=== PATIENT | male | born 1965 | race Caucasian/White ===

== ENCOUNTER 2017-03-21 09:32 | Emergency (ER) | payer BC ==
[~2017-03-21] VITALS: Ht 175.3 cm; Wt 88.0 kg
[~2017-03-21 09:32] MED LIST: ASPI325T PO; FIORIC PO; VALP250C PO
[2017-03-21 09:37] VITALS: BP 131/64; PULSE 78; RESP 16; TEMP 98.1; O2SAT 98
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
== END 2017-03-21 12:13 | disposition home or self-care (01) ==
LOC: PHED 09:32 → PHEFT 12:13
DX: S20.219A Contusion of unspecified front wall of thorax, initial encounter (principal); W31.89XA Contact with other specified machinery, initial encounter; Y93.89 Activity, other specified; Z72.0 Tobacco use
CPT/HCPCS: 71010; 71120; 99283

== ENCOUNTER 2018-02-25 13:09 | Observation (INO) ==
[2018-02-25 13:50] LABS: Baso # (Auto) 0.1 th/mm3 (0.0-0.2); Baso % (Auto) 1.1 % (0.0-2.0); Eos # (Auto) 0.2 th/mm3 (0.0-0.4); Hematocrit 42.7 % (39.0-51.0); Lymph # (Auto) 1.8 th/mm3 (1.0-4.8); Lymph % (Auto) 26.4 % (9.0-44.0); Mean Corpuscular HGB Conc 35.2 % (32.0-36.0); Mean Corpuscular Hemoglobin 32.7 pg (27.0-34.0); Mean Corpuscular Volume 92.8 fL (80.0-100.0); Mean Platelet Volume 7.5 fL (7.0-11.0); Mono # (Auto) 0.5 th/mm3 (0.0-0.9); Mono % (Auto) 7.4 % (0.0-8.0); Neut # (Auto) 4.3 th/mm3 (1.8-7.7); Neut % (Auto) 62.1 % (16.0-70.0); Platelet Count 289 th/mm3 (150-450); White Blood Count 6.9 th/mm3 (4.0-11.0)
[2018-02-25 14:00] LABS: Activated Partial Thrombo Time 25.4 sec (24.3-30.1); INR 1.1 Ratio; Prothrombin Time 10.7 sec (9.8-11.6)
--- NOTE | 2018-02-25 14:01 | CT ---
EXAM DATE: 02/25/2018 1:31 PM EDT AGE/SEX: 52 years / Male INDICATIONS: Right sided weakness CLINICAL DATA: This is the patient's initial encounter. Patient reports that signs and symptoms have been present for 1 day and indicates a pain score of 0/10. MEDICAL/SURGICAL HISTORY: . TIA None. RADIATION DOSE: 56.35 CTDI (mGy) COMPARISON: No prior exams available for comparison. TECHNIQUE: CT of the head without contrast. Using automated exposure control and adjustment of the mA and/or kV according to patient size, radiation dose was kept as low as reasonably achievable to ob tain optimal diagnostic quality images. DICOM format image data is available electronically for revi ew and comparison. There is no evidence for intracranial hemorrhage, mass effect, mass lesions, edema, or extra-axial fl uid collections. The visualized bony structures appear intact. The ventricles are normal size for t he patient's age. There are no signs of acute infarction for technique. CONCLUSION: Unremarkable study. Findings were reported to by myself after completion of t he study at 13:50 hours. Electronically signed by: Fran Cárdenas MD 02/25/2018 1:59 PM EDT
[2018-02-25] MEDS: Sod Chloride 0.9% Inj 1,000 ML IV.CONT SCH (14:04)
--- NOTE | 2018-02-25 14:14 | CT ---
EXAM DATE: 02/25/2018 1:31 PM EDT AGE/SEX: 52 years / Male INDICATIONS: Right side weakness CLINICAL DATA: This is the patient's initial encounter. Patient reports that signs and symptoms have been present for 1 day and indicates a pain score of 0/10. MEDICAL/SURGICAL HISTORY: . tia None. RADIATION DOSE: 10.11 CTDI (mGy) [place] [facility] [place]. . TECHNIQUE: Volumetric scanning was performed using a multi-row detector CT scanner during bolus infu dawn of 75 ml Visipaque 320 (iodixanol) nonionic water-soluble contrast as a cumulative dose for mul tiple exams. The data was post processed with a variety of visualization algorithms including full volume maximum intensity projection, multi-planar sliding thin slab reformation, curved planar reform ation, and surface rendering techniques. Using automated exposure control and adjustment of the mA a nd/or kV according to patient size, radiation dose was kept as low as reasonably achievable to obtain optimal diagnostic quality images. DICOM format image data is available electronically for review a nd comparison. FINDINGS: There is excellent visualization of the major intracranial arteries out to the second-order branch ve ssels. There is no evidence for aneurysm, vessel truncation or stenosis, and no evidence for vascula r malformation. CONCLUSION: Negative CTA Head. Electronically signed by: Reji Larson MD 02/25/2018 2:12 PM EDT
[2018-02-25 14:17] LABS: Creatine Kinase 130 U/L (39-308)
--- NOTE | 2018-02-25 14:37 | CT ---
EXAM DATE: 02/25/2018 1:31 PM EDT AGE/SEX: 52 years / Male INDICATIONS: Right side weakness CLINICAL DATA: This is the patient's initial encounter. Patient reports that signs and symptoms have been present for 1 day and indicates a pain score of 0/10. MEDICAL/SURGICAL HISTORY: . TIA None. RADIATION DOSE: 10.11 CTDI (mGy) ; Combined studies COMPARISON: No prior exams available for comparison. TECHNIQUE: Volumetric scanning was performed using a multirow detector CT scanner during bolus infus ion of 75 ml Visipaque 320 (iodixanol) nonionic water-soluble contrast as a cumulative dose for mult iple exams. The data was postprocessed with a variety of visualization algorithms including full-vo lume maximum intensity projection, multiplanar sliding thin-slab reformation, curved-planar reformati on, and surface-rendering techniques. Using automated exposure control and adjustment of the mA and/ or kV according to patient size, radiation dose was kept as low as reasonably achievable to obtain op timal diagnostic quality images. DICOM format image data is available electronically for review and comparison. Percent stenosis is calculated using the diameter of the stenotic region over the diameter of the nor mal distal internal carotid artery. FINDINGS: Aortic Arch: There is a three-vessel origin of the great vessels from the aorta. No evidence of ost ial narrowing Right Carotid: The common carotid artery is intact. The carotid bulb has a normal configuration wit hout ulceration or narrowing. The internal carotid artery lumen is smooth without stenosis. The ext ernal carotid artery is intact. Left Carotid: The common carotid artery is intact. The carotid bulb has a normal configuration with out ulceration or narrowing. The internal carotid artery lumen is smooth without stenosis. The exte rnal carotid artery is intact. Vertebrals: The vertebral arteries are patent bilaterally, left side dominant. No stenotic lesions are seen. CONCLUSION: Negative CTA Carotid. Electronically signed by: Reji Larson MD 02/25/2018 2:36 PM EDT
--- NOTE | 2018-02-25 15:04 | XR ---
EXAM DATE: 02/25/2018 1:27 PM EDT AGE/SEX: 52 years / Male INDICATIONS: Stroke Alert. Shortness of breath and chest pain. CLINICAL DATA: This is the patient's initial encounter. Patient reports that signs and symptoms have been present for 1 day and indicates a pain score of 4/10. MEDICAL/SURGICAL HISTORY: . TIA. None. COMPARISON: [facility], STERNUM (MIN 2 VWS), 03/21/2017. . FINDINGS: A single AP view of the chest demonstrates the lungs to be symmetrically aerated without evidence of mass, infiltrate or effusion. The cardiomediastinal contours are unremarkable. Osseous structures a re intact. CONCLUSION: Negative examination. Electronically signed by: Reji Larson MD 02/25/2018 3:02 PM EDT
--- NOTE | 2018-02-25 15:22 | ED ---
HPI General Chief complaint: Stroke Alert Stated complaint: facial drooping Time Seen by Provider: 02/25/18 13:27 Source: patient and family Mode of arrival: wheelchair Limitations: no limitations History of Present Illness HPI narrative: Patient is a 52-year-old male brought in by his due to concerns for stroke. Per , an hour prior to arrival he started to have a right-sided facial droop and right-sided weakness. states that he has had a TIA in the past. He is on no medications, and he is a smoker. He says he is starting to feel better on arrival, but he still says he feels some numbness to the right side of his face and weakness of his right arm. He denies feeling ill prior to the event. He denies chest pain or shortness of breath. Denies fever chills. Severity is moderate. Related Data Home Medications Medication Instructions Recorded Confirmed No Known Home Medications 02/25/18 02/25/18 Allergies Allergy/AdvReac Type Severity Reaction Status Date / Time codeine Allergy Unknown PT SAYS Verified 02/25/18 13:40 THAT HIS BROTHER FROM IT Review of Systems ROS: all other systems reviewed are negative Constitutional Denies chills and Denies fever(s) Eyes Denies blurry vision ENT Denies dizziness Cardiovascular Denies chest pain Respiratory Denies dyspnea Gastrointestinal Denies nausea and Denies vomiting Musculoskeletal Denies myalgias and Denies arthralgias Integumentary/Breasts Denies sores and Denies wounds Neurologic Reports focal weakness and Reports numbness [facility] Medical History Medical History Migraine (Acute) TIA (transient ischemic attack) (Acute) Social History Social History Substance History: Unable to Obtain Smoking Status: Current every day smoker Tobacco Type: Cigarettes How Often Do You Have a Drink Containing Alcohol: Monthly or less Recent Out of Country Travel within the Last 8 Weeks: No Immunization History Tetanus Immunization: Unsure Exam Narrative Exam Narrative: GENERAL: Awake and alert, in no acute distress. SKIN: Focused skin assessment warm/dry. No wounds or signs of infection. HEAD: Atraumatic. Normocephalic. EYES: Pupils equal and round and reactive. No scleral icterus. Extraocular movements intact. ENT: Mucous membranes pink and moist. NECK: Trachea midline. No JVD. CARDIOVASCULAR: Regular rate and rhythm. No murmur appreciated. RESPIRATORY: No accessory muscle use. Clear to auscultation. Breath sounds equal bilaterally. GASTROINTESTINAL: Abdomen soft, non-tender, nondistended. MUSCULOSKELETAL: No obvious deformities. No clubbing. No cyanosis. No edema. NEUROLOGICAL: Awake and alert. No obvious cranial nerve deficits. Weakness of the right arm and right leg, 3 of 5 compared to 5/5 on the left. Normal speech. No sensory deficit. PSYCHIATRIC: Appropriate mood and affect; insight and judgment normal. Course Initial Documented Vital Signs Pulse Rate 88 02/25/18 13:25 Respiratory Rate 16 02/25/18 13:25 Blood Pressure 167/82 H 02/25/18 13:25 Pulse Oximetry 97 02/25/18 13:25 Last Documented Vital Signs Pulse Rate 60 02/25/18 14:27 Respiratory Rate 16 02/25/18 14:27 Blood Pressure 136/71 02/25/18 14:27 Pulse Oximetry 98 02/25/18 14:27 NIH Stroke Scale NIH Stroke Scale Level of Consciousness: 0-Alert Orientation Questions: 0-Answers both correct Responds to Commands: 0-Both tasks correct Gaze Eye Movement: 0-Horizontal movement WNL Visual Anderson: 0-No visual field defect Facial Movement: 0-Normal Motor Functions Arm LEFT: 0-No drift Motor Functions Arm RIGHT: 1-Drift before 10 seconds Motor Functions Leg LEFT: 0-No drift Motor Functions Leg RIGHT: 0-No drift Limb Ataxia: 0-No ataxia Sensory Loss: 0-No sensory loss Best Language: 0-Normal Articulation: 0-Normal Extinction or Inattention Sensory: 0-Absent Total: 1 Medical Decision Making [facility] Narrative Medical decision making narrative: Patient is a 52-year-old male who comes in due to right-sided weakness. Exam shows mild decreased strength on the right side. Stroke alert was called. Patient taken to CT scan. CT of the head shows no evidence of bleed. Patient has minor symptoms that appear to be resolving, TPA was withheld. CTA of the head performed. Labs that show no acute abnormalities. Dr. Sandra of neurology is at bedside. He is given aspirin. MRI of the brain ordered. Patient admitted for further management. Medical Screen Exam Complete: Yes Emergency Medical Condition: Yes Differential Diagnosis Differential Diagnosis: Stroke versus TIA versus ACS Medical Records Medical records reviewed: Yes I reviewed the patient's medical records. Lab Data Lab results reviewed: Yes I reviewed the patient's lab results. Result diagrams: 02/25/18 13:20 Lab Results 02/25/18 02/25/18 02/25/18 Range/Units 13:20 13:20 13:20 WBC 6.9 (4.0-11.0) th/mm3 RBC 4.60 (4.50-5.90) mil/mm3 Hgb 15.0 (13.0-17.0) gm/dL POC Hgb (Calc) 14.3 (13.0-17.0) g/dL Hct 42.7 (39.0-51.0) % POC Hct 42.0 (39-51.0) % MCV 92.8 (80.0-100.0) fL MCH 32.7 (27.0-34.0) pg MCHC 35.2 (32.0-36.0) % RDW 13.0 (11.6-17.2) % Plt Count 289 (150-450) th/mm3 MPV 7.5 (7.0-11.0) fL Neut % (Auto) 62.1 (16.0-70.0) % Lymph % (Auto) 26.4 (9.0-44.0) % Stanton % (Auto) 7.4 (0.0-8.0) % Eos % (Auto) 3.0 (0.0-4.0) % Baso % (Auto) 1.1 (0.0-2.0) % Neut # (Auto) 4.3 (1.8-7.7) th/mm3 Lymph # (Auto) 1.8 (1.0-4.8) th/mm3 Stanton # (Auto) 0.5 (0.0-0.9) th/mm3 Eos # (Auto) 0.2 (0.0-0.4) th/mm3 Baso # (Auto) 0.1 (0.0-0.2) th/mm3 WBC Differential . Differential Comment Auto diff final PT 10.7 (9.8-11.6) sec INR 1.1 Ratio APTT 25.4 (24.3-30.1) sec Fibrinogen 347 (227-377) mg/dL POC Sodium 142 (137-144) mmol/L POC Potassium 4.2 (3.6-5.0) mmol/L POC Chloride 104 (102-111) mmol/L POC BUN 12 (5-21) mg/dL POC Creatinine 1.2 (0.6-1.3) mg/dL POC Glucose 88 (68-110) mg/dL Total Creatine Kinase 130 (39-308) U/L Troponin I Less than 0.02 L (0.02-0.05) ng/mL Blood Type Blood Type Recheck Antibody Screen 02/25/18 02/25/18 Range/Units 13:20 13:24 WBC (4.0-11.0) th/mm3 RBC (4.50-5.90) mil/mm3 Hgb (13.0-17.0) gm/dL POC Hgb (Calc) (13.0-17.0) g/dL Hct (39.0-51.0) % POC Hct (39-51.0) % MCV (80.0-100.0) fL MCH (27.0-34.0) pg MCHC (32.0-36.0) % RDW (11.6-17.2) % Plt Count (150-450) th/mm3 MPV (7.0-11.0) fL Neut % (Auto) (16.0-70.0) % Lymph % (Auto) (9.0-44.0) % Stanton % (Auto) (0.0-8.0) % Eos % (Auto) (0.0-4.0) % Baso % (Auto) (0.0-2.0) % Neut # (Auto) (1.8-7.7) th/mm3 Lymph # (Auto) (1.0-4.8) th/mm3 Stanton # (Auto) (0.0-0.9) th/mm3 Eos # (Auto) (0.0-0.4) th/mm3 Baso # (Auto) (0.0-0.2) th/mm3 WBC Differential Differential Comment PT (9.8-11.6) sec INR Ratio APTT (24.3-30.1) sec Fibrinogen (227-377) mg/dL POC Sodium (137-144) mmol/L POC Potassium (3.6-5.0) mmol/L POC Chloride (102-111) mmol/L POC BUN (5-21) mg/dL POC Creatinine (0.6-1.3) mg/dL POC Glucose 97 (68-110) mg/dL Total Creatine Kinase (39-308) U/L Troponin I (0.02-0.05) ng/mL Blood Type A Positive Blood Type Recheck Required Antibody Screen Negative Imaging Data Radiologist's impression: Chest X-Ray 02/25/18 13:27 CONCLUSION: Negative examination. Head CT 02/25/18 13:27 CONCLUSION: Unremarkable study. Findings were reported to by myself after completion of the study at 13:50 hours. Head CTA 02/25/18 13:27 CONCLUSION: Negative CTA Head. Neck CTA 02/25/18 13:27 CONCLUSION: Negative CTA Carotid. ECG Data EKG Prior to Arrival: No Attestation: I personally reviewed and interpreted this ECG as follows: Interpretation: ECG shows normal sinus rhythm at a rate of 61, no ST elevation or depression, normal intervals Discharge Plan Discharge Disposition Patient Disposition: 30 Still Patient Discharge Condition Condition: Stable Discharge Details Diagnosis: Acute CVA (cerebrovascular accident) Physicians Team ED Provider: Akila Alcantar Primary Care Provider: Primary Care Jaki,Parris Attending Provider: Grisel Stanley Other Providers: Candida Sandra Discharge Interventions Interventions: Vital Signs Last Done: 02/25/18 14:27 Status ED Status: Admitted Patient
[2018-02-25] MEDS ORDERED: Bisacodyl 10 MG Supp RECTAL PRN (15:32)
[2018-02-25] MEDS ORDERED: Acetaminophen 325 MG Tablet PO PRN (15:32)
[2018-02-25 15:47] LABS: Chol/HDL Ratio 11.33 Ratio; HDL Cholesterol 25.5 mg/dL (40.0-60.0)
[2018-02-25 15:59] LABS: Bilirubin,Urine Negative (Negative); Clarity,Urine Clear (Clear); Color,Urine Yellow (Yellw/Straw); Glucose,Urine (UA) Negative (Negative); Leukocyte Esterase,Urine Negative (Negative); Mucus,Urine Few /lpf (Occasional); Nitrite,Urine Negative (Negative)
[2018-02-25 16:05] LABS: Amphetamine Screen,Urine Neg (Neg); Barbiturate Screen,Urine Neg (Neg); Cannabinoid Screen,Urine Neg (Neg); Cocaine Screen,Urine Neg (Neg)
--- NOTE | 2018-02-25 16:17 | MB ---
cc: Candida Sandra MD DATE: 02/25/2018 REASON FOR CONSULTATION: Stroke alert. HISTORY OF PRESENT ILLNESS: Mr. Rinaldi is a 52-year-old gentleman who developed sudden onset of right-sided numbness. He has had this in the past. Last time he was admitted with these symptoms was back in 2013. He has been seen by Dr. Mendieta in the hospital and has seen also my partner, Dr. Jose in the office. He develops headaches; develops, but not every time of the headache, right face numbness. He notices that he drools and then today that occurred with involvement of the right arm and leg. His symptoms started around noon. He was taken in for a CAT scan and CTA [place] and carotid, which were all unremarkable. His symptoms have significantly improved to the point where they are nearly resolved and TPA is not indicated at this time. The patient's speech is normal. No significant headache currently. His states that he has been under a lot of stress with some family issues and work. In the past, he has been tried on Topamax as well as Depakote; could not tolerate it and was placed on a statin in the past, but had muscle pain. He gets headaches near daily. He does take a full dose aspirin every day. PAST MEDICAL HISTORY: Migraines and possible TIAs in the past, history of right leg surgery, left arm surgery. ALLERGIES: CODEINE. MEDICINES AT HOME: Full dose aspirin 325 mg. SOCIAL HISTORY: Still smokes at least a pack a day, drinks beer. PHYSICAL EXAMINATION: VITAL SIGNS: Heart rate 60, respiratory rate 16, blood pressure 136/71. NECK: Supple. There are no carotid bruits. HEART: Regular, no murmurs. LUNGS: Clear. NEUROLOGIC: He is awake and alert and oriented. His pupils are reactive. His visual chaudhry are full. Extraocular muscles are normal. His face is symmetrical. Tongue midline. Speech is entirely normal. No aphasia nor any dysarthria. He has slightly decreased light touch V2, V3 on the right face. Motor: There is no drift or leg lag at this time. Jfjytp-[id number]-vzcwfu stable. No past pointing. DTRs are 1+. Sensory: Slightly decreased light touch over the right side as stated. Toes are downgoing bilaterally. IMAGIN. CT head unremarkable for any acute process. 2. CTA [place] and carotids were normal. LABORATORY DATA: His labs are reviewed and his CBC today is within normal range. Coag panel was normal. Chemistries are intact. His troponin is less than 0.02. He has had an extensive workup back in 2015 where he had a neck MRA, head MRA and brain MRI as well as having an EEG in 2013, C-spine MRI in 2013, echocardiogram in 2013. He has also had labs back in 2015 with a hypercoagulable panel that were really unremarkable. IMPRESSION: Transient ischemic attack symptoms versus complex migraine variant. RECOMMENDATIONS: Recommend at this point in time getting an MRI of the brain just to make sure that there is no small infarct that has not been seen on CT. Recommend a repeat echo and have cardiology assess him for a transesophageal echo. Check a fasting lipid panel. Start him on Plavix 75 mg daily since he is already on full dose aspirin. We will stop the aspirin and put him on the Plavix, have permissible hypertension for today. Have PT assess and get him out of bed in the morning with PT. Depending on findings, further recommendations. If this is all a migraine equivalent, certainly the medication he has tried he did not tolerate, but there is a new migraine medication. It is a once a month injection that can be initiated through the office and he can followup for that. Continue current care. Further recommendations will be made accordingly. SCDs and subcutaneous heparin for DVT prevention as well. MD SANIYA Gonzalez/yan/vamshi , 02:55 PM , 03:05 PM
--- NOTE | 2018-02-25 16:53 | P.HPIM ---
History of Present Illness Service: [facility] Primary Care Physician: No Primary Care Physician Chief Complaint: facial numbness History of Present Illness: This is a 52-year-old CM with reported PMHx of Migraines who presented to the ED due to right-sided numbness of sudden onset at 12PM today. Reports previous incident in 2014 with a hospital admission with Neg work up. Patient sees Dr. Jose as an outpatient. He was diagnosed with migraines with occasional right face numbness with drooling in the past. However, he reports that these spells occur without a headache. He denies photophobia, sensitivity to sound, and N/V with the events. This time when it occurred it included the right arm and leg. Patient reports trying Topamax in 2013 with no relief and SE of nausea as well as Depakote with no relief up to a few months ago and significant nausea as a side effect as well. Patient reports having been placed on a statin in the past , but he developed significant muscle pain, and therefore he stopped taking it. Home meds include ASA daily. Patient denies HTN, DM, HLD, and Hx of VTE/CVA/ DVT. On evaluation today sx resolved. Of note, previous extensive workup in 2016, Neck MRA, Head MRA and Brain MRI, Neg Hypercoagulable panel in 2016. - Diagnosis (1) TIA (transient ischemic attack) (2) Migraine Review of Systems All other systems reviewed negative except as stated [facility] - History History Provided By: Family Member - Medical History Medical History: Medical History (Last Reviewed 02/25/18 @ 17:50 by Grisel Stanley MD) Migraine TIA (transient ischemic attack) - Surgical History Surgical History: Surgical History (Last Updated 02/25/18 @ 17:50 by Grisel Stanley MD) History of knee surgery - Family History Family History: Family History (Last Updated 02/25/18 @ 17:50 by Grisel Stanley MD) Other Parkinson disease - Tobacco History Tobacco Use In Past 30 Days: Yes Smoking Status: Current every day smoker Tobacco Type: Cigarettes - Alcohol History How Often Do You Have a Drink Containing Alcohol: Monthly or less - Substance Use History Substance History: Unable to Obtain - Travel History Recent Travel Out of the Country Within the Last 8 Weeks: No - Immunization History Tetanus Immunization: Unsure Medications and Allergies Active Medications: Active Medications Acetaminophen (Tylenol) 650 mg PO Q4H PRN PRN Reason: Temp > 100.4 Al Hydroxide/Mg Hydroxide (Milk Of Magnesia Liq) 30 ml PO Q12H PRN PRN Reason: Mild Constipation Bisacodyl (Dulcolax Supp) 10 mg RECTAL DAILY PRN PRN Reason: SEVERE CONSITIPATION Clopidogrel Bisulfate (Plavix) 75 mg PO DAILY [facility] Last Admin: 02/25/18 15:19 Dose: 75 mg Sodium Chloride (Ns Inj) 1,000 mls @ 70 mls/hr IV.CONT .[id number] [facility] Last Admin: 02/25/18 14:04 Dose: 70 mls/hr Lactulose (Lactulose Liq) 30 ml PO DAILY PRN PRN Reason: SEVERE CONSITIPATION Ondansetron HCl (Zofran Inj) 4 mg IV.PUSH Q6H PRN PRN Reason: NAUSEA OR VOMITING Senna/Docusate Sodium (Minal-Colace) 1 tab PO BID [facility] Sennosides (Senokot) 17.2 mg PO Q12H PRN PRN Reason: Moderate Constipation Allergies Allergy/AdvReac Type Severity Reaction Status Date / Time codeine Allergy Unknown PT SAYS Verified 02/25/18 13:40 THAT HIS BROTHER FROM IT Home Medications Medication Instructions Recorded Confirmed Type No Known Home Medications 02/25/18 02/25/18 History Exam Vital signs: Vital Signs 02/25/18 13:25 02/25/18 13:30 02/25/18 13:35 Pulse Rate 88 70 67 Respiratory Rate 16 Blood Pressure 167/82 H 164/76 H 145/75 H Pulse Oximetry 97 97 96 02/25/18 13:44 02/25/18 13:45 02/25/18 13:50 Pulse Rate 66 75 72 Respiratory Rate 16 Blood Pressure 151/67 H 138/65 140/68 Pulse Oximetry 97 97 97 02/25/18 14:00 02/25/18 14:27 02/25/18 15:00 Pulse Rate 70 60 68 Respiratory Rate 16 16 18 Blood Pressure 135/95 H 136/71 130/68 Pulse Oximetry 97 98 96 02/25/18 16:00 02/25/18 16:15 Pulse Rate 62 60 Respiratory Rate 18 16 Blood Pressure 130/68 121/78 Pulse Oximetry 99 Intake & Output 10/02/25/18 02/25/18 18:59 06:59 18:59 Output Total 600 / 600 Balance -600 / -600 Weight 94.6 kg Output: Urine 600 / 600 Other: # Voids 1 Narrative: GENERAL: Well-nourished male, in no acute distress, lying comfortably in bed SKIN: Warm and dry. Multiple tattoos. HEENT: Normocephalic. No scleral icterus. No injection or drainage. PERRLA, MOM. NECK: Supple, trachea midline. No JVD or lymphadenopathy. CARDIOVASCULAR: Regular rate and rhythm without murmurs, gallops, or rubs. RESPIRATORY: CTA x2, No accessory muscle use. GASTROINTESTINAL: Abdomen soft, non-tender, nondistended. MUSCULOSKELETAL: No cyanosis, or edema. BACK: Nontender without obvious deformity. No CVA tenderness. NEURO: AAO x3, facial symmetry noted, speech is clear, motor strength 5/5 x 4, no focal deficits Results - Labs CBC & Chem 7: 02/25/18 13:20 Labs: Short CBC 02/25/18 Range/Units 13:20 WBC 6.9 (4.0-11.0) th/mm3 Hgb 15.0 (13.0-17.0) gm/dL Hct 42.7 (39.0-51.0) % Plt Count 289 (150-450) th/mm3 Cardiac Enzymes 02/25/18 Range/Units 13:20 Total Creatine Kinase 130 (39-308) U/L Troponin I Less than 0.02 L (0.02-0.05) ng/mL Urine 02/25/18 Range/Units 15:15 Urine Color Yellow (Yellw/Straw) Urine Clarity Clear (Clear) Urine pH 7.0 (5.0-8.5) Ur Specific [place] 1.020 (1.002-1.035) Urine Protein Negative (Neg-Trace) mg/dL Urine Glucose (UA) Negative (Negative) mg/dL - Imaging Impressions Chest X-Ray 02/25/18 13:27 CONCLUSION: Negative examination. Head CT 02/25/18 13:27 CONCLUSION: Unremarkable study. Findings were reported to by myself after completion of the study at 13:50 hours. Head CTA 02/25/18 13:27 CONCLUSION: Negative CTA Head. Neck CTA 02/25/18 13:27 CONCLUSION: Negative CTA Carotid. Caprini VTE Risk Assessment Caprini VTE Risk Assessment: No/Low Risk (score <= 1) Caprini Risk Assessment Model: Point Value = 1 Point Value = 2 Point Value = 3 Point Value = 5 Age 41-60 Minor surgery BMI > 25 kg/m2 Swollen legs Varicose veins or History of unexplained or recurrent spontaneous Oral contraceptives or hormone replacement Sepsis (< 1 month) Serious lung disease, including pneumonia (< 1 month) Abnormal pulmonary function Acute myocardial infarction Congestive heart failure (< 1 month) History of inflammatory bowel disease Medical patient at bed rest Age 61-74 Arthroscopic surgery Major open surgery (> 45 min) Laparoscopic surgery (> 45 min) Malignancy Confined to bed (> 72 hours) Immobilizing plaster cast Central venous access Age >= 75 History of VTE Family history of VTE Factor V Leiden Prothrombin [id number] Lupus anticoagulant Anticardiolipin antibodies Elevated serum homocysteine Heparin-induced thrombocytopenia Other congenital or acquired thrombophilia Stroke (< 1 month) Elective arthroplasty Hip, pelvis, or leg fracture Acute spinal cord injury (< 1 month) Prophylaxis Regimen: Total Risk Factor Score Risk Level Prophylaxis Regimen 0-1 Low Early ambulation 2 Moderate Order ONE of the following: *Sequential Compression Device (SCD) *Heparin 5000 units SQ BID 3-4 Higher Order ONE of the following medications: *Heparin 5000 units SQ TID *Enoxaparin/Lovenox 40 mg SQ daily (WT < 150 kg, CrCl > 30 mL/min) *Enoxaparin/Lovenox 30 mg SQ daily (WT < 150 kg, CrCl > 10-29 mL/min) *Enoxaparin/Lovenox 30 mg SQ BID (WT < 150 kg, CrCl > 30 mL/min) AND/OR *Sequential Compression Device (SCD) 5 or more Highest Order ONE of the following medications: *Heparin 5000 units SQ TID (Preferred with Epidurals) *Enoxaparin/Lovenox 40 mg SQ daily (WT < 150 kg, CrCl > 30 mL/min) *Enoxaparin/Lovenox 30 mg SQ daily (WT < 150 kg, CrCl > 10-29 mL/min) *Enoxaparin/Lovenox 30 mg SQ BID (WT < 150 kg, CrCl > 30 mL/min) AND *Sequential Compression Device (SCD) Assessment and Plan - Assessment (1) TIA (transient ischemic attack) Code(s): G45.9 - Transient cerebral ischemic attack, unspecified Status: Acute (2) Migraine Code(s): G43.909 - Migraine, unspecified, not intractable, without status migrainosus Status: Chronic - Plan This is a 52-year-old CM with reported PMHx of TIA and HLD who presented to the ED due to right-sided numbness of sudden onset at 12PM today. Reports previous incident in 2013 with a hospital admission with Neg work up. Hx of migraines with occasional right face numbness and drooling. New onset of right arm and leg weakness. Patient admitted for inpatient evaluation of TIA versus complex migraine, HD #1 1. Transient ischemic attack symptoms versus complex migraine variant Neg CT Head, Neg CTA Neck Neg MRA Head, Neg MRA Neck Will order an MRI Brain to further assess for possible CVA Neurology consulted, appreciate assistance with management Will get an Echo Neuro requesting Cardiology consult to assess for possible HEATHER Checking Lipids (statin not started as not tolerated in the past) Started on Plavix 75mg QD since patient is on ASA 325mg already at home (not continued) Allow permissible HTN for now PT consult 2. Hx of Migraines See above If CVA ruled out, consider outpatient monthly injection per Neuro recommendations 3. Health Maintenance Checking HgbA1c and Lipids 4. DVT PPX: SCDs, Heparin per Neuro 5. Dispo: F/U Cardiology and Neuro recommendations Code Status: full Discussed Condition With: [patient, RN, ER physician
--- NOTE | 2018-02-25 17:00 | MR ---
EXAM DATE: 02/25/2018 3:49 PM EDT AGE/SEX: 52 years / Male INDICATIONS: Stroke. Right sided weakness and facial droop with slurred speech. CLINICAL DATA: This is the patient's initial encounter. Patient reports that signs and symptoms have been present for 1 day and indicates a pain score of 5/10. MEDICAL/SURGICAL HISTORY: None. . Rt knee sx, Lt hand sx. [place]PAR[place] [facility] [place]. . TECHNIQUE: 3D [id number] MRA was performed. Source images, multiplanar STS MIP, and 3D volum e MIP reconstructions were reviewed. FINDINGS: There is excellent visualization of the major intracranial arteries out to the second-order branch ve ssels. There is no evidence for aneurysm, vessel truncation or stenosis, and no evidence for vascula r malformation. CONCLUSION: Negative MRA Cow ([facility]) non contrast. Electronically signed by: Reji Larson MD 02/25/2018 4:59 PM EDT
[2018-02-25 17:01] LABS: Opiate Screen,Urine Neg (Neg)
--- NOTE | 2018-02-25 17:03 | MR ---
EXAM DATE: 02/25/2018 4:41 PM EDT AGE/SEX: 52 years / Male INDICATIONS: Stroke. Right sided weakness and slurred speech. CLINICAL DATA: This is the patient's initial encounter. Patient reports that signs and symptoms have been present for 1 day and indicates a pain score of 4/10. MEDICAL/SURGICAL HISTORY: None. . Rt knee sx, Lt hand sx. COMPARISON: . TECHNIQUE: Multiplanar, multisequence examination of the brain was performed without contrast. FINDINGS: Cerebrum: The ventricles are mildly asymmetric on a developmental basis.. No evidence of midline sh ift, mass lesion, hemorrhage or acute infarction. No extraaxial fluid collections are seen. The pit uitary gland and suprasellar cistern are normal in configuration. White Matter: No significant signal abnormalities are seen in the white matter. Posterior Fossa: The cerebellum and brainstem are intact. The 4th ventricle is midline. The cerebel lopontine angle is unremarkable. The cerebellar tonsils are normal in position. Diffusion Imaging: No focal areas of restricted diffusion are seen. No evidence of acute infarction . Extracranial: The visualized portions of the orbits and paranasal sinuses are unremarkable. CONCLUSION: Negative MR Brain non contrast. Electronically signed by: Reji Larson MD 02/25/2018 5:02 PM EDT
[2018-02-25] MEDS ORDERED: Gadobutrol PF 10 MMOL/10 ML Vial (for RAD) IV.SIG ONE (17:10)
--- NOTE | 2018-02-25 17:34 | MR ---
EXAM DATE: 02/25/2018 3:42 PM EDT AGE/SEX: 52 years / Male INDICATIONS: Stroke. Right sided weakness and facial droop with slurred speech. CLINICAL DATA: This is the patient's initial encounter. Patient reports that signs and symptoms have been present for 1 day and indicates a pain score of 4/10. MEDICAL/SURGICAL HISTORY: None. . Rt knee sx, Lt hand sx. COMPARISON: [facility], CTA NECK W CONTRAST W 3D, 02/25/2018. . TECHNIQUE: 10 ml Gadavist (gadobutrol) contrast infused MRA (single exam dose) of the extracranial circulation was performed using a neurovascular coil. Postprocessing was performed, including rotati ng sub-volume maximum intensity projections of each carotid artery, rotating full-volume maximum inte nsity projections of both carotid arteries, sagittal and coronal sliding thin-slab reformations of ea ch carotid artery, and left oblique sliding thin-slab reformation through the aortic arch to include the origin of the arch branch vessels. FINDINGS: Aortic Arch : There is a three-vessel origin of the great vessels from the aorta. No evidence of o stial narrowing. Right Carotid : The common carotid artery is intact. The carotid bulb has a normal configuration wi thout ulceration or narrowing. The internal carotid artery lumen is smooth without stenosis. The ex ternal carotid artery is intact. Left Carotid : The common carotid artery is intact. The carotid bulb has a normal configuration wit hout ulceration or narrowing. The internal carotid artery lumen is smooth without stenosis. The ext ernal carotid artery is intact. Vertebrals : The vertebral arteries are patent bilaterally, left side dominant.. No stenotic lesion s are seen. CONCLUSION: Negative MRA Carotids. Percent stenosis is calculated using the diameter of the stenotic region over the diameter of the nor mal distal internal carotid artery Electronically signed by: Reji Larson MD 02/25/2018 5:33 PM EDT
[2018-02-25 18:12] LABS: Hemoglobin A1c 5.2 % (4.3-6.0)
--- NOTE | 2018-02-25 19:33 | ECG ---
Date Performed: 02/25/2018 Time Performed: 14:33:30 PTAGE: 52 years EKG: Sinus rhythm NORMAL ECG Compared to prior electrocardiogram PVCs are no longer present. PREVIOUS TRACING : 01/23/2016 08.54 DOCTOR: Zaheer Alclaa Interpretating Date/Time 02/25/2018 19:31:36
--- NOTE | 2018-02-25 21:35 | ECHRPT ---
Indication: CVA/TIA CONCLUSIONS Technically very difficult apical views, making assessment of regional wall motion suboptimal. The left ventricular systolic function is normal with an estimated ejection fraction in the range of 55-60%. Wall thickness is normal. Normal left ventricular size. There is mild tricuspid valve regurgitation. The estimated pulmonary arterial pressure is 33 mmHg. BP: / HR: Rhythm: Sinus MEASUREMENTS (Male / Female) Normal Values Technical Quality:Fair 2D ECHO LV Diastolic Diameter PLAX 4.7 cm 4.2 - 5.9 / 3.9 - 5.3 cm LV Systolic Diameter PLAX 3.6 cm IVS Diastolic Thickness 0.9 cm 0.6 - 1.0 / 0.6 - 0.9 cm LVPW Diastolic Thickness 0.9 cm 0.6 - 1.0 / 0.6 - 0.9 cm LV Relative Wall Thickness 0.4 LVOT Diameter 2.2 cm M-MODE Aortic Root Diameter MM 2.8 cm LA Systolic Diameter MM 3.3 cm LA Ao Ratio MM 1.2 AV Cusp Separation MM 2.2 cm DOPPLER AV Peak Velocity 108.0 cm/s AV Peak Gradient 4.7 mmHg LVOT Peak Velocity 97.2 cm/s LVOT Peak Gradient 3.8 mmHg AV Area Cont Eq pk 3.4 cm Mitral E Point Velocity 65.2 cm/s Mitral A Point Velocity 75.5 cm/s Mitral E to A Ratio 0.9 LV E' Lateral Velocity 9.4 cm/s Mitral E to LV E' Lateral Ratio 7.0 LV E' Septal Velocity 7.1 cm/s Mitral E to LV E' Septal Ratio 9.2 TR Peak Velocity 244.3 cm/s TR Peak Gradient 23.9 mmHg Right Atrial Pressure 10.0 mmHg Pulmonary Artery Systolic Pressu 33.9 mmHg Right Ventricular Systolic Press 33.9 mmHg PV Peak Velocity 89.6 cm/s PV Peak Gradient 3.2 mmHg FINDINGS LEFT VENTRICLE Technically very difficult apical views, making assessment of regional wall motion suboptimal. The left ventricular systolic function is normal with an estimated ejection fraction in the range of 55-60%. Wall thickness is normal. Normal left ventricular size. RIGHT VENTRICLE Normal right ventricular size and systolic function. LEFT ATRIUM The left atrial size is normal. RIGHT ATRIUM The right atrial size is normal. ATRIAL SEPTUM Normal atrial septal thickness without atrial level shunting by limited color doppler interrogation. AORTA The aortic root and proximal ascending aorta are normal in size on limited imaging. MITRAL VALVE Structurally normal mitral valve. No mitral valve stenosis or regurgitation. AORTIC VALVE Trileaflet aortic valve. No aortic valve stenosis or regurgitation. TRICUSPID VALVE There is mild tricuspid valve regurgitation. The estimated pulmonary arterial pressure is 33 mmHg. PULMONARY VALVE No pulmonary valve regurgitation or stenosis. VESSELS The inferior vena cava is normal in size. PERICARDIUM No pericardial effusion. Juan M Higgins MD (Electronically Signed) Final Date:25 February 2018 21:34
[2018-02-25] MEDS: Senna/Docusate Sodium 8.6/50 MG Tablet PO SCH (21:47)
[2018-02-25] MEDS: Heparin - SQ 10,000 UNITS/ML Vial SQ SCH (21:47)
[2018-02-26] MEDS: Sod Chloride 0.9% Inj 1,000 ML IV.CONT SCH (03:46)
[2018-02-26] MEDS: Heparin - SQ 10,000 UNITS/ML Vial SQ SCH ×2 (09:01→21:26)
[2018-02-26] MEDS: Senna/Docusate Sodium 8.6/50 MG Tablet PO SCH ×2 (09:02→21:27)
[2018-02-26 09:23] LABS: Baso # (Auto) 0.1 th/mm3 (0.0-0.2); Baso % (Auto) 1.4 % (0.0-2.0); Eos # (Auto) 0.2 th/mm3 (0.0-0.4); Eos % (Auto) 3.7 % (0.0-4.0); Hemoglobin 15.9 gm/dL (13.0-17.0); Lymph # (Auto) 1.6 th/mm3 (1.0-4.8); Lymph % (Auto) 32.5 % (9.0-44.0); Mean Corpuscular HGB Conc 35.3 % (32.0-36.0); Mean Corpuscular Hemoglobin 32.5 pg (27.0-34.0); Mean Corpuscular Volume 92.2 fL (80.0-100.0); Mean Platelet Volume 7.3 fL (7.0-11.0); Mono # (Auto) 0.4 th/mm3 (0.0-0.9); Mono % (Auto) 8.3 % (0.0-8.0); Neut # (Auto) 2.6 th/mm3 (1.8-7.7); Neut % (Auto) 54.1 % (16.0-70.0); Platelet Count 263 th/mm3 (150-450); Red Blood Count 4.88 mil/mm3 (4.50-5.90); Red Cell Distribution Width 12.5 % (11.6-17.2); White Blood Count 4.8 th/mm3 (4.0-11.0)
[2018-02-26 09:44] LABS: Albumin 3.6 g/dL (3.4-5.0); Anion Gap 6 meq/L (5-15); Aspartate Aminotransferase 15 U/L (15-37); Blood Urea Nitrogen 13 mg/dL (7-18); Calcium 8.6 mg/dL (8.5-10.1); Carbon Dioxide 23.1 meq/L (21.0-32.0); Chloride 111 meq/L (98-107); Glomerular Filtration Rate Greater Than 89 mL/min (>89); Glucose,Random 88 mg/dL (74-106); Potassium 4.4 meq/L (3.5-5.1); Sodium 140 meq/L (136-145)
[2018-02-26 09:45] LABS: Alanine Aminotransferase 35 U/L (12-78)
[2018-02-26 09:48] LABS: Alkaline Phosphatase 73 U/L (45-117); Total Protein 6.9 g/dL (6.4-8.2)
[2018-02-26] MEDS ORDERED: Metoprolol Tartrate 25 MG Tablet PO SCH (11:59)
[2018-02-26] MEDS ORDERED: Chlorhexidine Gluconate 2% 1 Pack (2 Cloths) TOPICAL SCH (11:59)
[2018-02-26] MEDS ORDERED: Sodium Chlor 0.9% Inj 500 ML IV.SIG SCH (12:00)
[2018-02-26] MEDS ORDERED: Lidocaine PF 1% Inj 5 ML Syringe OTHER ONE (14:20)
[2018-02-26] MEDS ORDERED: ceFAZolin 2 GM Premix Inj 2 GM/50 ML PIGGYBACK IV.SIG ONE (14:45)
[2018-02-26] MEDS ORDERED: fentaNYL Citrate Inj 100 MCG/2 ML Ampul ONE (14:50)
--- NOTE | 2018-02-26 17:47 | P.PN ---
Subjective Interval history: Patient doing well. Patient has been n.p.o. since midnight pending cardiology recommendations today. Patient has no new concerns. Reports symptoms of facial tingling and drooling still occur occasionally. Physical Exam Vital signs: Vital Signs 02/25/18 20:00 02/25/18 20:49 02/26/18 00:00 Temperature 98 F 97.6 F Pulse Rate 63 58 L Respiratory Rate 18 18 Blood Pressure 124/78 121/72 Pulse Oximetry 98 96 96 02/26/18 00:05 02/26/18 03:44 02/26/18 04:00 Temperature 97.6 F Pulse Rate 56 L 54 L 52 L Respiratory Rate 16 Blood Pressure 123/75 Pulse Oximetry 95 02/26/18 07:43 02/26/18 08:00 02/26/18 09:00 Temperature 98.1 F Pulse Rate 58 L 57 L Respiratory Rate 18 Blood Pressure 118/70 Pulse Oximetry 98 96 02/26/18 09:40 02/26/18 12:00 02/26/18 16:00 Temperature 98.2 F 97.6 F Pulse Rate 63 54 L Respiratory Rate 20 22 Blood Pressure 136/87 128/81 Pulse Oximetry 98 97 98 Intake & Output 02/25/18 02/26/18 02/26/18 18:59 06:59 18:59 Intake Total 480 / 480 1000 / 1000 2049 Output Total 600 / 600 Balance -120 / -120 1000 / 1000 2049 Weight 94.6 kg Intake: IV 1000 / 1000 2049 NS Inj 1,000 ML @ 70 mls/hr IV. 1000 / 1000 1000 / 1000 CONT .[id number] [facility] Rx#:[id number] LR 1000 mL Inj 1,000 ML @ 30 1000 / 1000 mls/hr IV.SIG .Q24H [facility] Rx#: [id number] Ancef 2 GM Premix Inj 2 gm In 50 / 50 50 ml @ 0 mls/hr IV.SIG .STK- MED ONE Rx#:[id number] Oral 480 / 480 Output: Urine 600 / 600 Other: # Voids 1 # Urine Diapers 2 Date of Last Bowel Movement 02/25/18 Narrative: GENERAL: Well-nourished male, in no acute distress, lying comfortably in bed SKIN: Warm and dry. Multiple tattoos. HEENT: Normocephalic. No scleral icterus. No injection or drainage. PERRLA, MOM. NECK: Supple, trachea midline. No JVD or lymphadenopathy. CARDIOVASCULAR: Regular rate and rhythm without murmurs, gallops, or rubs. RESPIRATORY: CTA x2, No accessory muscle use. GASTROINTESTINAL: Abdomen soft, non-tender, nondistended. MUSCULOSKELETAL: No cyanosis, or edema. BACK: Nontender without obvious deformity. No CVA tenderness. NEURO: AAO x3, facial symmetry noted, speech is clear, motor strength 5/5 x 4, no focal deficits Results - Labs CBC & Chem 7: 02/26/18 08:43 02/26/18 08:45 Laboratory Results - last 24 hr 02/25/18 02/25/18 02/26/18 13:20 13:20 08:43 WBC 4.8 RBC 4.88 Hgb 15.9 Hct 45.0 MCV 92.2 MCH 32.5 MCHC 35.3 RDW 12.5 Plt Count 263 MPV 7.3 Neut % (Auto) 54.1 Lymph % (Auto) 32.5 [place] % (Auto) 8.3 H Eos % (Auto) 3.7 Baso % (Auto) 1.4 Neut # (Auto) 2.6 Lymph # (Auto) 1.6 [place] # (Auto) 0.4 Eos # (Auto) 0.2 Baso # (Auto) 0.1 WBC Differential . Differential Comment Auto diff final Sodium Potassium Chloride Carbon Dioxide Anion Gap BUN Creatinine Estimated GFR Random Glucose Hemoglobin A1c 5.2 Calcium Total Bilirubin AST ALT Alkaline Phosphatase Total Protein Albumin LDL Cholesterol, Calc 02/26/18 08:45 WBC RBC Hgb Hct MCV MCH MCHC RDW Plt Count MPV Neut % (Auto) Lymph % (Auto) [place] % (Auto) Eos % (Auto) Baso % (Auto) Neut # (Auto) Lymph # (Auto) [place] # (Auto) Eos # (Auto) Baso # (Auto) WBC Differential Differential Comment Sodium 140 Potassium 4.4 Chloride 111 H Carbon Dioxide 23.1 Anion Gap 6 BUN 13 Creatinine 0.88 Estimated GFR Greater than 89 Random Glucose 88 Hemoglobin A1c Calcium 8.6 Total Bilirubin 0.3 AST 15 ALT 35 Alkaline Phosphatase 73 Total Protein 6.9 Albumin 3.6 LDL Cholesterol, Calc Assessment and Plan - Assessment (1) TIA (transient ischemic attack) Code(s): G45.9 - Transient cerebral ischemic attack, unspecified Status: Acute (2) Migraine Code(s): G43.909 - Migraine, unspecified, not intractable, without status migrainosus Status: Chronic - Plan This is a 52-year-old CM with reported PMHx of TIA and HLD who presented to the ED due to right-sided numbness of sudden onset at 12PM today. Reports previous incident in 2013 with a hospital admission with Neg work up. Hx of migraines with occasional right face numbness and drooling. New onset of right arm and leg weakness. Patient admitted for inpatient evaluation of TIA versus complex migraine, HD #2 1. Transient ischemic attack symptoms versus complex migraine variant Neg CT Head, Neg CTA Neck Neg MRA Head, Neg MRA Neck Neg MRI Head Neurology consulted, appreciate assistance with management Echo on 02/25, ef 55-60%. Wall thickness is normal. Normal left ventricular size. Cardiology consulted to assess for possible HEATHER (per Neuro recommendation), appreciate assistance with management TG 593, LDL not calculated, starting Fenofibrate (statin not started as not tolerated in the past) Started on Plavix 75mg QD on admission since patient is on ASA 325mg already at home (not continued) Allow permissible HTN for now PT consult 2. Hx of Migraines See above Cont. Tylenol PRN (denies MADERA) Consider outpatient monthly injection per Neuro recommendations 3. HLD/Hypertriglyceridemia Triglycerides 593, LDL unable to be calculated We will start Fenofibrate today Statin not previously tolerated per patient 4. Health Maintenance HgbA1c 5.2% 5. DVT PPX: SCDs/Heparin per Neuro 6. Dispo: F/U Cardiology and Neuro recommendations Code Status: full Discussed Condition With: patient, RN
--- NOTE | 2018-02-26 17:56 | ECHRPT ---
Indication: cva/tia CONCLUSIONS The left ventricular systolic function is normal with an estimated ejection fraction in the range of 55-60%. Trace mitral valve regurgitation. Trivial pulmonary valve regurgitation. Normal left atrial appendage size with no evidence of thrombus formation. BP: / HR: Rhythm: Sinus Technical Quality:Good Medications Complications Proc. Components Anesthesia at the bedside for sedation FINDINGS LEFT VENTRICLE Normal left ventricular size. The left ventricular systolic function is normal with an estimated ejection fraction in the range of 55-60%. No regional wall motion abnormalities are present. RIGHT VENTRICLE The right ventricular size is normal. The right ventricular systoilc function is normal. LEFT ATRIUM The left atrial size is normal. RIGHT ATRIUM The right atrial size is normal. ATRIAL APPENDAGES Normal left atrial appendage size with no evidence of thrombus formation. ATRIAL SEPTUM Normal atrial septal thickness without atrial level shunting by limited color doppler interrogation. AORTA The aortic root and proximal ascending aorta are normal in size on limited imaging. MITRAL VALVE Structurally normal mitral valve. Trace mitral valve regurgitation. No mitral valve stenosis. AORTIC VALVE Trileaflet aortic valve. No aortic valve regurgitation. No aortic valve stenosis. TRICUSPID VALVE Structurally normal tricuspid valve. No tricuspid regurgitation. No tricuspid valve stenosis. VESSELS The pulmonary valve is not well visualized. Trivial pulmonary valve regurgitation. Clint Mitchell DO (Electronically Signed) Final Date:26 February 2018 17:55
[2018-02-26] MEDS: Fenofibrate 48 MG Tablet PO SCH (19:21)
--- NOTE | 2018-02-27 02:20 | MR ---
cc: Clint Mitchell DO DATE: 02/26/2018 PROCEDURE: Placement of the Medtronic Reveal LINQ loop recorder (model number LNQ11, serial number [id number]), moderate sedation 15 minutes. PREPROCEDURE DIAGNOSIS: Multiple neurological episodes possibly due to transient ischemic attack. POSTPROCEDURE DIAGNOSIS: Possible transient ischemic attack, status post loop recorder placement. MEDICATIONS: Ancef 2 g, Versed 1 mg, fentanyl 100 mcg. MODERATE SEDATION: 15 minutes. ESTIMATED BLOOD LOSS: Minimal. PROCEDURAL SUMMARY: Jesica Rinaldi is a pleasant 52-year-old male who presented to [place] with possible neurological symptoms. He has had multiple episodes of this and has been worked up by Neurology for complex migraine, although the patient does not get a headache with these events and previous medications neurologically have not stopped the events. I was asked to see him for consideration of possible TIAs. HEATHER showed no cardiac thrombus and so I recommended loop recorder placement. Risks, benefits and alternatives were explained to him and he consented to such. After HEATHER, the patient was prepped in normal sterile fashion. Anterior chest wall was anesthetized with lidocaine. A small incision was made over the fourth intercostal to the left of the sternum. A Medtronic loop recorder was then injected underneath the skin and pressure held for hemostasis. The patient tolerated the procedure well. HARDWARE: Medtronic Reveal LINQ (model number LNQ11, serial number [id number]). R-wave 0.47 millivolts. Parameters, tachycardia greater than 182 beats per minute, bradycardia less than 30 beats per minute, pause greater than 3 seconds. IMPRESSION: 1. Symptoms concerning for transient ischemic attack versus complex migraine. 2. Loop recorder placement. RECOMMENDATIONS: 1. Mr. Rinaldi underwent loop recorder placement as above. Transmissions will be sent to my office to further evaluate for possible atrial fibrillation. 2. If stable, in the morning, can be discharged home from my standpoint. Thank you for allowing me to see Jesica Rinaldi. If there are any questions, please do not hesitate to call. Clint Mitchell DO VGP/sv , 11:10 PM , 11:18 PM
[2018-02-27 08:49] LABS: Baso % (Auto) 0.9 % (0.0-2.0); Eos # (Auto) 0.2 th/mm3 (0.0-0.4); Eos % (Auto) 3.6 % (0.0-4.0); Hematocrit 42.7 % (39.0-51.0); Hemoglobin 15.1 gm/dL (13.0-17.0); Lymph # (Auto) 1.3 th/mm3 (1.0-4.8); Lymph % (Auto) 28.7 % (9.0-44.0); Mean Corpuscular HGB Conc 35.5 % (32.0-36.0); Mean Corpuscular Hemoglobin 32.6 pg (27.0-34.0); Mean Corpuscular Volume 91.8 fL (80.0-100.0); Mean Platelet Volume 7.6 fL (7.0-11.0); Mono # (Auto) 0.3 th/mm3 (0.0-0.9); Mono % (Auto) 7.6 % (0.0-8.0); Neut # (Auto) 2.6 th/mm3 (1.8-7.7); Neut % (Auto) 59.2 % (16.0-70.0); Platelet Count 269 th/mm3 (150-450); Red Blood Count 4.65 mil/mm3 (4.50-5.90); Red Cell Distribution Width 12.4 % (11.6-17.2); White Blood Count 4.4 th/mm3 (4.0-11.0)
[2018-02-27 09:09] VITALS: BP 116/60; RESP 20; TEMP 98
[2018-02-27 09:16] LABS: Albumin 3.5 g/dL (3.4-5.0); Anion Gap 8 meq/L (5-15); Aspartate Aminotransferase 15 U/L (15-37); Blood Urea Nitrogen 12 mg/dL (7-18); Calcium 8.7 mg/dL (8.5-10.1); Carbon Dioxide 25.7 meq/L (21.0-32.0); Chloride 108 meq/L (98-107); Glomerular Filtration Rate 83 mL/min (>89); Glucose,Random 89 mg/dL (74-106); Potassium 4.3 meq/L (3.5-5.1); Sodium 142 meq/L (136-145)
[2018-02-27] MEDS: Heparin - SQ 10,000 UNITS/ML Vial SQ SCH (09:18)
[2018-02-27] MEDS: Fenofibrate 48 MG Tablet PO SCH (09:18)
[2018-02-27] MEDS: Senna/Docusate Sodium 8.6/50 MG Tablet PO SCH (09:19)
[2018-02-27 09:26] LABS: Alanine Aminotransferase 31 U/L (12-78); Alkaline Phosphatase 69 U/L (45-117); Total Protein 6.5 g/dL (6.4-8.2)
[2018-02-27 10:41] VITALS: O2SAT 97
[2018-02-27 11:07] VITALS: PULSE 61
--- NOTE | 2018-02-27 11:14 | P.PN ---
Subjective Interval history: doing well s/p charlie and loop Physical Exam Vital signs: Vital Signs 02/26/18 12:00 02/26/18 16:00 02/26/18 20:00 Temperature 98.2 F 97.6 F 97.8 F Pulse Rate 63 54 L 58 L Respiratory Rate 20 22 20 Blood Pressure 136/87 128/81 124/66 Pulse Oximetry 97 98 97 02/27/18 00:00 02/27/18 03:27 02/27/18 03:56 Temperature 97.5 F L 97.8 F Pulse Rate 56 L 59 L 53 L Respiratory Rate 20 16 Blood Pressure 125/68 96/51 L Pulse Oximetry 98 98 02/27/18 08:00 02/27/18 10:41 02/27/18 11:05 Temperature 98.0 F Pulse Rate 58 L 61 Respiratory Rate 20 Blood Pressure 116/60 Pulse Oximetry 98 97 Intake & Output 02/26/18 02/27/18 02/27/18 18:59 06:59 18:59 Intake Total 2290 / 2290 Balance 2290 / 2290 Intake: IV 2049 / 2049 NS Inj 1,000 ML @ 70 mls/hr IV. 1000 / 1000 CONT .[id number] [facility] Rx#:[id number] LR 1000 mL Inj 1,000 ML @ 30 1000 / 1000 mls/hr IV.SIG .Q24H [facility] Rx#: [id number] Ancef 2 GM Premix Inj 2 gm In 50 / 50 50 ml @ 0 mls/hr IV.SIG .STK- [facility] Rx#:[id number] Oral 240 / 240 Other: # Voids 3 Date of Last Bowel Movement 02/27/18 02/26/18 # Bowel Movements 0 1 - Constitutional no acute distress - Routine HEENT Exam Head: Present: normocephalic, atraumatic Eye: Present: EOMI, PERRL - Routine Neck Exam Present: supple - Routine Cardiovascular Exam Present: RRR - Routine Neurological Exam Present: oriented X3, CN II-XII intact, moving all extremities, normal tone, normal speech Results - Labs CBC & Chem 7: 02/27/18 06:56 02/27/18 06:56 Laboratory Results - last 24 hr 02/27/18 02/27/18 06:56 06:56 WBC 4.4 RBC 4.65 Hgb 15.1 Hct 42.7 MCV 91.8 MCH 32.6 MCHC 35.5 RDW 12.4 Plt Count 269 MPV 7.6 Neut % (Auto) 59.2 Lymph % (Auto) 28.7 [place] % (Auto) 7.6 Eos % (Auto) 3.6 Baso % (Auto) 0.9 Neut # (Auto) 2.6 Lymph # (Auto) 1.3 [place] # (Auto) 0.3 Eos # (Auto) 0.2 Baso # (Auto) 0.0 WBC Differential . Differential Comment Auto diff final Sodium 142 Potassium 4.3 Chloride 108 H Carbon Dioxide 25.7 Anion Gap 8 BUN 12 Creatinine 0.96 Estimated GFR 83 L Random Glucose 89 Calcium 8.7 Total Bilirubin 0.3 AST 15 ALT 31 Alkaline Phosphatase 69 Total Protein 6.5 Albumin 3.5 - Imaging mri neg mra cow /ca neg as were the cta's charlie no pfo loop in place lipids abnl Assessment and Plan - Plan plavix dc home statin f/u in office to try aimovig for migraine prevention. d/w pt also d/w pt and his stress reduction stop smoking low fat diet exercise.
--- NOTE | 2018-02-27 11:31 | P.DS ---
Date of admission: 02/25/18 14:51 Primary care physician: No Primary Care Physician Brief History from admission: This is a 52-year-old CM with reported PMHx of Migraines who presented to the ED due to right-sided numbness of sudden onset at 12PM today. Reports previous incident in 2013 with a hospital admission with Neg work up. Patient sees Dr. Jose as an outpatient. He was diagnosed with migraines with occasional right face numbness with drooling in the past. However, he reports that these spells occur without a headache. He denies photophobia, sensitivity to sound, and N/V with the events. This time when it occurred it included the right arm and leg. Patient reports trying Topamax in 2013 with no relief and SE of nausea as well as Depakote with no relief up to a few months ago and significant nausea as a side effect as well. Patient reports having been placed on a statin in the past , but he developed significant muscle pain, and therefore he stopped taking it. Home meds include ASA daily. Patient denies HTN, DM, HLD, and Hx of VTE/CVA/ DVT. On evaluation today sx resolved. Of note, previous extensive workup in 2016, Neck MRA, Head MRA and Brain MRI, Neg Hypercoagulable panel in 2016. DS: Medications - Discharge Medications Prescriptions: clopidogrel [Plavix] 75 mg PO DAILY #30 tab fenofibrate nanocrystallized 48 mg PO DAILY #30 tab DS: Summary - Time Spent with Patient Total time spent providing and/or coordinating discharge services: Exam Vital signs: Vital Signs 02/26/18 12:00 02/26/18 16:00 02/26/18 20:00 Temperature 98.2 F 97.6 F 97.8 F Pulse Rate 63 54 L 58 L Respiratory Rate 20 22 20 Blood Pressure 136/87 128/81 124/66 Pulse Oximetry 97 98 97 02/27/18 00:00 02/27/18 03:27 02/27/18 03:56 Temperature 97.5 F L 97.8 F Pulse Rate 56 L 59 L 53 L Respiratory Rate 20 16 Blood Pressure 125/68 96/51 L Pulse Oximetry 98 98 02/27/18 08:00 02/27/18 10:41 02/27/18 11:05 Temperature 98.0 F Pulse Rate 58 L 61 Respiratory Rate 20 Blood Pressure 116/60 Pulse Oximetry 98 97 Intake & Output 02/26/18 02/27/18 02/27/18 18:59 06:59 18:59 Intake Total 2290 / 2290 Balance 2290 / 2290 Intake: IV 2049 / 2049 NS Inj 1,000 ML @ 70 mls/hr IV. 1000 / 1000 CONT .[id number] [facility] Rx#:[id number] LR 1000 mL Inj 1,000 ML @ 30 1000 / 1000 mls/hr IV.SIG .Q24H [facility] Rx#: [id number] Ancef 2 GM Premix Inj 2 gm In 50 / 50 50 ml @ 0 mls/hr IV.SIG .STK- [facility] Rx#:[id number] Oral 240 / 240 Other: # Voids 3 Date of Last Bowel Movement 02/27/18 02/26/18 # Bowel Movements 0 1 Results Labs on day of discharge: Labs from last 24 hours 02/27/18 02/27/18 06:56 06:56 WBC 4.4 RBC 4.65 Hgb 15.1 Hct 42.7 MCV 91.8 MCH 32.6 MCHC 35.5 RDW 12.4 Plt Count 269 MPV 7.6 Neut % (Auto) 59.2 Lymph % (Auto) 28.7 [place] % (Auto) 7.6 Eos % (Auto) 3.6 Baso % (Auto) 0.9 Neut # (Auto) 2.6 Lymph # (Auto) 1.3 [place] # (Auto) 0.3 Eos # (Auto) 0.2 Baso # (Auto) 0.0 WBC Differential . Differential Comment Auto diff final Sodium 142 Potassium 4.3 Chloride 108 H Carbon Dioxide 25.7 Anion Gap 8 BUN 12 Creatinine 0.96 Estimated GFR 83 L Random Glucose 89 Calcium 8.7 Total Bilirubin 0.3 AST 15 ALT 31 Alkaline Phosphatase 69 Total Protein 6.5 Albumin 3.5 - Impressions ITS Impressions Head MRI 02/25/18 00:00 CONCLUSION: Negative MR Brain non contrast. Chest X-Ray 02/25/18 13:27 CONCLUSION: Negative examination. Head CT 02/25/18 13:27 CONCLUSION: Unremarkable study. Findings were reported to by myself after completion of the study at 13:50 hours. Head CTA 02/25/18 13:27 CONCLUSION: Negative CTA Head. Neck CTA 02/25/18 13:27 CONCLUSION: Negative CTA Carotid. Neck MRA 02/25/18 15:39 CONCLUSION: Negative MRA Carotids. Percent stenosis is calculated using the diameter of the stenotic region over the diameter of the normal distal internal carotid artery Head MRA 02/25/18 15:47 CONCLUSION: Negative MRA [place] ([place]) non contrast. Discharge Plan - Discharge Disposition Patient Disposition: 01 Discharge Home - Discharge Condition Condition: Stable - Discharge Order Discharge Orders: Discharge Order (Routine); Ordered 02/27/18 Ordered By: Genoveva Paula - Physicians Team Primary Care Provider: Primary Care Parris Pollack Attending Provider: Genoveva Paula Other Providers: Candida Sandra MD ; Juan M Higgins MD
--- NOTE | 2018-02-27 11:53 | MB ---
cc: Clint Mitchell DO DATE: 02/26/2018 REASON FOR CONSULTATION: TIA. HISTORY OF PRESENT ILLNESS: Jesica Rinaldi is a pleasant 52-year-old male who presented to [facility] due to right-sided numbness and facial droop. He sees Dr. Jose in the outpatient setting and it was felt that he was having complex migraines where he gets occasional facial numbness and drooling in the past. Along with this, he has also noticed some facial droop and trouble with his right arm. The weird part about this is that he has these spells without a headache and denies photophobia, sensitivity to sound or nausea or vomiting. He has apparently attempted multiple medications from the neurological standpoint without relief of this. I was asked to see him for consideration of further workup for TIA as a possible cause for these. He states that he has had these since 2013 and they seem to come and go in waves. In seeing him, he is currently hemodynamically stable with no neurological issues. PAST MEDICAL HISTORY: 1. Migraine. 2. TIA. PAST SURGICAL HISTORY: Knee surgery. ALLERGIES: CODEINE. MEDICATIONS: Denies. FAMILY HISTORY: Parkinson's. Denies sudden cardiac within the family. SOCIAL HISTORY: The patient smokes cigarettes daily. Denies alcohol or drug abuse. REVIEW OF SYSTEMS: Fourteen systems were reviewed including osteopathic. Pertinent positives and negatives above, otherwise negative. PHYSICAL EXAMINATION: VITAL SIGNS: Temperature 98.2, heart rate 63, blood pressure 136/87, respirations 20, pulse oximetry 97% on room air. GENERAL: The patient appears well, in no acute distress; alert, awake and oriented x3. HEENT: Extraocular muscles intact. Mucous membranes moist. NECK: Supple. No JVD at 45 degrees. No carotid bruits heard bilaterally. Carotid upstroke is brisk in nature. HEART: Regular rate and rhythm. Positive first and second heart sounds with no noted murmurs, gallops or rubs. LUNGS: Clear to auscultation bilaterally. No wheezes, rales or rhonchi. ABDOMEN: Soft, nontender, nondistended. No organomegaly noted. EXTREMITIES: Show no clubbing, cyanosis or edema. Femoral and distal pulses are intact bilaterally. NEUROLOGIC: No focal deficits. SKIN: Warm, dry and intact. OSTEOPATHIC: No kyphoscoliosis, lordosis or paraspinal tender points. LABORATORY DATA: Hemoglobin 15.9, hematocrit 45.0, platelets 263. Potassium 4.4, BUN 13, creatinine 0.88. Troponin less than 0.02. DIAGNOSTIC DATA: Electrocardiogram (02/25/2018 at 1433 hours): Sinus rhythm. IMPRESSION: 1. Neurological symptoms, possible transient ischemic attack versus complex migraine. 2. Hyperlipidemia. 3. Tobacco abuse. RECOMMENDATIONS: 1. Mr. Rinaldi appears to have these neurological episodes and there was a concern originally for complex migraines as his previous workup for TIA appeared to be negative over the past few years. 2. My only concern with this is that he gets no episode of headache with these actual episodes and he has attempted multiple medications without relief. 3. I agree with neurology for consideration of HEATHER. The patient has been n.p.o. after midnight and we will plan on a HEATHER today. 4. If HEATHER is negative, I would recommend placement of a loop recorder as he has had these episodes multiple times and luckily has not had residual neurological symptoms. As these come in waves, it may be difficult to catch any possible atrial fibrillation episodes on standard Holter or event monitor. 5. For now the patient has been started on Plavix by neurology, but if found to have atrial fibrillation, would plan to change him to a NOAC. 6. I spoke to him for greater than 3 minutes about tobacco cessation. Thank you for allowing me to see Jesica Rinaldi. If there are any questions, please do not hesitate to call. Clint Mitchell, VGP/yan , 11:05 PM , 11:15 PM
--- NOTE | 2018-02-27 23:04 | P.PNCA ---
Subjective Interval history: Doing well Awaiting discharge Medications and Allergies Allergies Allergy/AdvReac Type Severity Reaction Status Date / Time codeine Allergy Unknown PT SAYS Verified 02/25/18 13:40 THAT HIS BROTHER FROM IT Home Medications Medication Instructions Recorded Confirmed Type No Known Home Medications 02/25/18 02/25/18 History Physical Exam Vital signs: Vital Signs 02/27/18 00:00 02/27/18 03:27 02/27/18 03:56 Temperature 97.5 F L 97.8 F Pulse Rate 56 L 59 L 53 L Respiratory Rate 20 16 Blood Pressure 125/68 96/51 L Pulse Oximetry 98 98 02/27/18 08:00 02/27/18 10:41 02/27/18 11:05 Temperature 98.0 F Pulse Rate 58 L 61 Respiratory Rate 20 Blood Pressure 116/60 Pulse Oximetry 98 97 Intake & Output 02/27/18 02/27/18 02/28/18 06:59 18:59 06:59 Other: # Voids 3 Date of Last Bowel Movement 02/27/18 02/26/18 # Bowel Movements 1 Narrative: GENERAL: Well-nourished male, in no acute distress, lying comfortably in bed SKIN: Warm and dry. Multiple tattoos. HEENT: Normocephalic. No scleral icterus. No injection or drainage. PERRLA, MOM. NECK: Supple, trachea midline. No JVD or lymphadenopathy. CARDIOVASCULAR: Regular rate and rhythm without murmurs, gallops, or rubs. RESPIRATORY: CTA x2, No accessory muscle use. GASTROINTESTINAL: Abdomen soft, non-tender, nondistended. MUSCULOSKELETAL: No cyanosis, or edema. BACK: Nontender without obvious deformity. No CVA tenderness. NEURO: AAO x3, facial symmetry noted, speech is clear, motor strength 5/5 x 4, no focal deficits Results 02/27/18 06:56 02/27/18 06:56 Cardiac Enzymes 02/26/18 02/27/18 Range/Units 08:45 06:56 AST 15 15 (15-37) U/L CBC 02/26/18 02/27/18 Range/Units 08:43 06:56 WBC 4.8 4.4 (4.0-11.0) th/mm3 RBC 4.88 4.65 (4.50-5.90) mil/mm3 Hgb 15.9 15.1 (13.0-17.0) gm/dL Hct 45.0 42.7 (39.0-51.0) % Plt Count 263 269 (150-450) th/mm3 Neut # (Auto) 2.6 2.6 (1.8-7.7) th/mm3 Lymph # (Auto) 1.6 1.3 (1.0-4.8) th/mm3 [place] # (Auto) 0.4 0.3 (0.0-0.9) th/mm3 Eos # (Auto) 0.2 0.2 (0.0-0.4) th/mm3 Baso # (Auto) 0.1 0.0 (0.0-0.2) th/mm3 Comprehensive Metabolic Panel 02/26/18 02/27/18 Range/Units 08:45 06:56 Sodium 140 142 (136-145) meq/L Potassium 4.4 4.3 (3.5-5.1) meq/L Chloride 111 H 108 H (98-107) meq/L Carbon Dioxide 23.1 25.7 (21.0-32.0) meq/L BUN 13 12 (7-18) mg/dL Creatinine 0.88 0.96 (0.60-1.30) mg/dL Calcium 8.6 8.7 (8.5-10.1) mg/dL AST 15 15 (15-37) U/L ALT 35 31 (12-78) U/L Alkaline Phosphatase 73 69 (45-117) U/L Total Protein 6.9 6.5 (6.4-8.2) g/dL Albumin 3.6 3.5 (3.4-5.0) g/dL Intake and Output 02/27/18 02/27/18 02/28/18 14:59 22:59 06:59 Other: Date of Last Bowel Movement 02/26/18 Assessment and Plan - Assessment (1) TIA (transient ischemic attack) Code(s): G45.9 - Transient cerebral ischemic attack, unspecified Status: Acute (2) Migraine Code(s): G43.909 - Migraine, unspecified, not intractable, without status migrainosus Status: Chronic - Plan 1) Neurologic symptoms Possible TIA vs complex migraine 2) HEATHER showing no thrombus 3) Loop recorder placed Rule out AFib as patient has had multiple episodes of neurologic symptoms concerning for TIAs If Afib discovered then will change Plavix to NOAC 4) Cardiovascularly stable for discharge Will follow up with me in the office
== END 2018-02-27 12:57 | disposition home or self-care (01) ==
LOC: NEPE 13:09 → NEDA 14:51 → INTOOBSV 14:51 → NEDA 16:56 → N05 17:43
PROVIDERS: ADMIT Family Medicine; ATTEND Family Medicine